=== PATIENT | male | born 1995 | race Caucasian/White ===

== ENCOUNTER 2017-03-18 16:44 | Emergency (ER) | payer SELFPAY ==
--- NOTE | 2017-03-18 17:23 | ERPHSYRPT ---
- History of Present Illness Time Seen by Provider: 03/18/17 17:19 Source: patient Exam Limitations: no limitations Patient Subjective Stated Complaint: rt groin pain for 1 week Triage Nursing Assessment: rt groin pain for 1 week--pain worse with lifting and moving. golf ball size area to rt groin. nonradiating in nature--denies testicle pain. denies pain with urination Physician History: Right groin pain for 1 week rt groin pain for 1 week--pain worse with lifting and moving. golf ball size area to rt groin. non radiating in nature--denies testicle pain. denies pain with urination. No penile discharge, denies any sexual history Timing/Duration: week(s) (one week) Severity: moderate Associated Symptoms: denies symptoms Allergies/Adverse Reactions: No Known Drug Allergies Allergy (Unverified 03/18/17 16:54) Home Medications: No Home Meds 1 ea UD 03/18/17 [History] Hx Tetanus, Diphtheria Vaccination/Date Given: Yes Hx Influenza Vaccination/Date Given: No Hx Pneumococcal Vaccination/Date Given: No Immunizations Up to Date: Yes - Review of Systems Constitutional: No Symptoms Eyes: No Symptoms Ears, Nose, & Throat: No Symptoms Respiratory: No Symptoms Cardiac: No Symptoms Genitourinary Symptoms: No Symptoms Skin: Rash (on both legs due to sun exposure) Neurological: No Symptoms Psychological: No Symptoms Endocrine: No Symptoms Hematologic/Lymphatic: Adenopathy Immunological/Allergic: No Symptoms - Past Medical History Pertinent Past Medical History: No - Past Surgical History Past Surgical History: No - Social History Smoking Status: Current every day smoker Exposure to second hand smoke: No Drug Use: none Patient Lives Alone: No - Nursing Vital Signs Nursing Vital Signs: Initial Vital Signs Temperature 97.7 F Temperature Source Oral Pulse Rate 76 Respiratory Rate 18 Blood Pressure [] 157/96 Pain Intensity 5 - Physical Exam General Appearance: no apparent distress Eye Exam: PERRL/EOMI Ears, Nose, Throat Exam: normal ENT inspection Neck Exam: normal inspection Respiratory Exam: normal breath sounds Cardiovascular Exam: regular rate/rhythm Gastrointestinal/Abdomen Exam: soft, normal bowel sounds Male Genitalia Exam: normal genitalia, No testicular tenderness, No testicular mass, No penile lesion, No priapism, No penile discharge Rectal Exam: deferred Neurologic Exam: oriented x 3 Skin Exam: normal color Lymphatic Exam: inguinal node tender (L) SpO2 Interpretation: normal SpO2: 98 Oxygen Delivery: Room Air - Course Nursing assessment & vital signs reviewed: Yes - CT Exams Abdomen/Pelvis CT Interpretation: Tele-radiologist Report Ordered Tests: Active Orders 24 hr Category Date Time Status PELVIS WITHOUT CONTRAST [CT] Stat Exams 03/18/17 17:17 Taken CBC W DIFF Stat Lab 03/18/17 17:28 Completed CMP Stat Lab 03/18/17 17:28 Completed Manual Differential NC Stat Lab 03/18/17 17:28 Completed Lab/Rad Data: Laboratory Result Diagrams 03/18/17 17:28 03/18/17 17:28 Laboratory Results 03/18/17 03/18/17 Range/Units 17:28 17:28 WBC 7.2 (4.0-10.5) K/mm3 RBC 5.12 (4.1-5.6) M/mm3 Hgb 16.1 (12.5-18.0) gm/dl Hct 46.8 (42-50) % MCV 91.4 (78-100) fl MCH 31.4 (26-32) pg MCHC 34.4 (32-36) g/dl RDW 12.4 (11.5-14.0) % Plt Count 208 (150-450) K/mm3 MPV 10.2 H (6-9.5) fl Segmented Neutrophils 53 (36.-66.) % Band Neutrophils 7 H (0.0-2.0) % Lymphocytes (Manual) 14 L (24-44) % Monocytes (Manual) 15 H (0.0-12.0) % Eosinophils (Manual) 5 H (0.00-3.0) % Basophils (Manual) 2 H (0.0-1.0) % Metamyelocytes 1 % Differential Comment NORMAL Atypical Lymphocytes 3 % Platelet Estimate NORMAL (NORMAL) Sodium 139 (136-145) mEq/L Potassium 3.7 (3.5-5.1) mEq/L Chloride 102 (98-107) mEq/L Carbon Dioxide 27.8 (21-32) mEq/L Anion Gap 13.0 (5-15) MEQ/L BUN 11 (9-20) mg/dL Creatinine 1.09 (0.55-1.30) mg/dl Estimated GFR > 60 ML/MIN Glucose 101 (70-110) MG/DL Calcium 9.0 (8.5-10.1) mg/dL Total Bilirubin 0.30 (0.2-1.0) mg/dL AST 23 (15-37) U/L ALT 24 (12-78) U/L Alkaline Phosphatase 81 (46-116) U/L Serum Total Protein 8.0 (6.4-8.2) gm/dL Albumin 3.9 (3.4-5.0) g/dL - Progress Progress: unchanged Counseled pt/family regarding: lab results, diagnosis, need for follow-up - Departure Time of Disposition: 18:04 Departure Disposition: Home Clinical Impression: Inguinal lymphadenitis Condition: Stable Critical Care Time: No Referrals: SABRINA HUNG [Primary Care Provider] - Instructions: Lymphadenopathy Additional Instructions: take Ibuprofen 400 mg orally three times a day for 3-5 days. Please follow the instructions given to you. Please take your medication as prescribed if given. If symptoms recur or get worse, come back to the emergency room if you cannot reach your primary care physician, or call your primary care physician for an appointment. Again if your symptoms get worse, come back to the emergency room. Thanks for visiting emergency room, and let us take care of you.
[2017-03-18 17:31] LABS: Mean Cell Volume 91.4 fl (78-100); Mean Corpuscular Hemoglobin 31.4 pg (26-32); Mean Platelet Volume 10.2 fl (6-9.5); Platelet Count 208 K/mm3 (150-450); Red Blood Count 5.12 M/mm3 (4.1-5.6); Red Cell Distribution Width 12.4 % (11.5-14.0); White Blood Count 7.2 K/mm3 (4.0-10.5)
[2017-03-18 17:52] LABS: ALBUMIN 3.9 g/dL (3.4-5.0); ALKALINE PHOSPHATASE 81 U/L (46-116); BLOOD UREA NITROGEN 11 mg/dL (9-20); CHLORIDE 102 mEq/L (98-107); Carbon Dioxide 27.8 mEq/L (21-32); Glucose 101 MG/DL (70-110); Potassium 3.7 mEq/L (3.5-5.1); SGOT/AST 23 U/L (15-37); SGPT/ALT 24 U/L (12-78); SODIUM 139 mEq/L (136-145)
[2017-03-18 17:59] LABS: ATYPICAL LYMPHS 3 %; BAND 7 % (0.0-2.0); Basophil 2 % (0.0-1.0); Eosinophil 5 % (0.00-3.0); Metamyelocyte 1 %; Platelet Estimate NORMAL (NORMAL); Total Cells Counted 100
[2017-03-18 18:15] VITALS: BP 117/64; PULSE 74; O2SAT 100
--- NOTE | 2017-03-18 20:42 | XRAY ---
Indication: Left groin lump. Multiple contiguous axial images obtained through the pelvis only without contrast. Cutaneous marker placed over the palpable lump. Comparison: None Cutaneous marker overlies the left groin region where there are 3 underlying prominent lymph nodes, largest measuring 1.7 x 1.2 cm. Minimal stranding suggests infectious/inflammatory process. Benign-appearing right inguinal nodes. There is incidental moderate scattered colonic fecal debris. Remaining pelvic contents unremarkable. Impression: 1. Left groin lump corresponds to prominent lymph nodes as detailed. 2. Incidental fecal stasis. CTDI 18.87
== END 2017-03-18 18:16 | disposition home or self-care (01) ==
LOC: ED 16:44
DX: L04.1 Acute lymphadenitis of trunk (principal); R10.9 Unspecified abdominal pain
CPT/HCPCS: 36415; 72192; 80053; 85025; 99283; 99284